=== PATIENT | male | born 1995 | race Caucasian/White ===

== ENCOUNTER 2018-10-18 07:30 | Emergency (ER) | payer MEDICAID ==
[~2018-10-18] VITALS: Ht 152.4 cm; Wt 89.0 kg
[2018-10-18 07:33] VITALS: BP 132/78; PULSE 75; RESP 18; Ht 152.4 cm; Wt 89.0 kg
--- NOTE | 2018-10-18 08:20 | ERD ---
ER Documentation Chief Complaint Chief Complaint BODYACHE WITH SORE ON LIP FOR 1 WEEK HPI 23-year-old male, previously healthy, presents to the emergency department, complaining of 1 week with body aches, general malaise and a cold sore in the upper lip. No fever, no chills, no shortness of breath, no chest pain. The patient has not taken any medications at this time for pain. ROS All systems reviewed and are negative except as per history of present illness. Medications Home Meds Active Scripts Ibuprofen* (Motrin*) 400 Mg Tab, 400 MG PO Q8, #12 TAB Prov:SUE OWENS MD 10/18/18 Valacyclovir HCl (Valtrex) 1,000 Mg Tablet, 1000 MG PO TID for 7 Days, TAB Prov:SUE OWENS MD 10/18/18 FmHx Family History: No diabetes, No coronary disease Physical Exam Vitals Vital Signs Date Temp Pulse Resp B/P (MAP) Pulse Ox O2 O2 Flow FiO2 Time Delivery Rate 10/18/18 98.9 75 18 132/78 99 07:33 (96) Physical Exam Const: No acute distress Head: Atraumatic Eyes: Normal Conjunctiva ENT: Upper lip with vesicular rash, otherwise, normal External Ears, Nose Neck: Full range of motion. No meningismus. Resp: Clear to auscultation bilaterally Cardio: Regular rate and rhythm, no murmurs Abd: Soft, non tender, non distended. Normal bowel sounds Skin: No petechiae or rashes Back: No midline or flank tenderness Ext: No cyanosis, or edema Neur: Awake and alert Psych: Normal Mood and Affect Procedures/MDM Differential diagnosis include but not limited to: Respiratory infection bacterial/viral/fungal. Asthma, pneumonitis, allergies, GERD. Less likely foreign body aspiration, cardiac related, aspiration pneumonia, malignancy. Physical examination and clinical presentation consistent most likely with herpes labialis and viral syndrome. During the ED course the patient remained stable, no new complaints. Clinical impression discussed with the patient who agrees with management. The patient is stable to be treated outpatient and will be discharged home. antibiotics not indicated at this time. some side effects of prescribed medications (headache, rash, nausea, vomiting, diarrhea, drowsiness, hypertension, interactions with other medications) were reviewed. The patient was instructed to follow up with the primary care provider in the next 48h. If symptoms persist, worsen or new symptoms develop, then patient should return to the ED immediately. Disclaimer: Inadvertent spelling and grammatical errors are likely due to EHR/dictation software use and do not reflect on the overall quality of patient care. Also, please note that the electronic time recorded on this note does not necessarily reflect the actual time of the patient encounter. Departure Diagnosis: Primary Impression: Cold sore Additional Impression: Viral syndrome Condition: Stable Additional Instructions: Thank you very much for allowing us to participate in your care. Your health and safety is our top priority at [facility]. Call your primary care doctor TOMORROW for an appointment during the next 2-4 days and bring all the information and medications prescribed. Have prescriptions filled and follow precisely the directions on the label. If the symptoms get worse and your provider is unavailable, return to the Emergency Department immediately. SUE OWENS MD Oct 18, 2018 08:20
[2018-10-18] MEDS ORDERED: VALA10004 PO (08:31)
[2018-10-18] MEDS ORDERED: IBUP-1561 PO (08:31)
== END 2018-10-18 08:50 | disposition home or self-care (01) ==
LOC: FTE 07:30
DX: B00.1 Herpesviral vesicular dermatitis (principal); B34.9 Viral infection, unspecified
CPT/HCPCS: 99283